=== PATIENT | male | born 1985 | race Caucasian/White ===

== ENCOUNTER 2016-05-04 22:07 | Emergency (ER) | payer SELFPAY ==
[2016-05-04 22:36] VITALS: BP 144/68; TEMP 99.7; O2SAT 99
[2016-05-04] MEDS ORDERED: ONDANSETRON INJ 4 MG/2 ML VIAL IV ONE (22:39)
[2016-05-04] MEDS ORDERED: SODIUM CHLORIDE 0.9% 1000ML 1,000 ML IVS ONE (22:39)
[2016-05-04] MEDS ORDERED: MORPHINE SULFATE INJ 10 MG/ML VIAL IV ONE (22:40)
--- NOTE | 2016-05-04 22:42 | ED.PDOC ---
History of Present Illness - General Chief Complaint: GI Problem Stated Complaint: vomiting over 24 hrs Time Seen by Provider: 05/04/16 22:38 Source: patient, RN notes reviewed, Vital Signs reviewed Exam Limitations: no limitations - History of Present Illness Initial Comments: Patient is a 31 y/o male who reports abdominal pain x 24 hours. He has had nausea and vomiting as well. Unable to keep anything down, including fluids. The pain is a sharp pain, worse in the RLQ, severe. Timing/Duration: 24 hours Severity: severe Improving Factors: nothing Worsening Factors: movement Associated Symptoms: loss of appetite, nausea/vomiting Allergies/Adverse Reactions: Allergies NO KNOWN ALLERGY Allergy (Verified 06/30/15 10:03) Home Medications: Ambulatory Orders Ondansetron [Zofran Odt] 4 mg PO Q4H PRN #10 tab 06/27/15 Pantoprazole Sodium [Protonix] 40 mg PO DAILY #30 tab 06/30/15 Promethazine Tab [Phenergan Tablet] 25 mg PO Q4HR PRN #10 tab 06/30/15 Ondansetron [Ondansetron Odt] 4 mg PO Q8H PRN #10 tab 05/05/16 Past Medical History (General) - Patient Medical History Hx Seizures: No Hx Stroke: No Hx Dementia: No Hx Asthma: No Hx of COPD: No Hx Cardiac Disorders: No Hx Congestive Heart Failure: No Hx Pacemaker: No Hx Hypertension: No Hx Thyroid Disease: No Hx Diabetes: No Hx Gastroesophageal Reflux: No Hx Renal Disease: No Hx Cancer: No Hx of HIV: No Hx Hepatitis C: No Hx MRSA: No - Vaccination History Hx Tetanus, Diphtheria Vaccination: No Hx Influenza Vaccination: No Hx Pneumococcal Vaccination: No - Social History Hx Tobacco Use: No Hx Chewing Tobacco Use: No Hx Alcohol Use: No Hx Substance Use: No Hx Substance Use Treatment: No Hx Depression: No Hx Physical Abuse: No Hx Emotional Abuse: No Hx Suspected Abuse: No - Triage Comment ED Triage Comment: Pt states he has been vomiting for over 24 hrs and abdominal pain in center of his stomach that radiates through his back. 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 Family Medical History - Family History Mother Family History: No Known Living Status: Still Living Progress - Results/Orders Results/Orders: 05/04/16 05/04/16 22:15 22:28 Temperature 99.7 F H Pulse Rate [ 57 L monitor] Respiratory 16 16 Rate Blood Pressure 144/68 [Left Arm] O2 Sat by Pulse 99 Oximetry 05/04/16 22:38 INFLUENZA A & B BY PCR Stat GROUP A STREP SCREEN,PCR Stat URINALYSIS Stat 05/04/16 23:11 Hold Metformin x 48Hrs [id number] Laboratory Results WBC 12.2 K/mm3 (4.8-10.8) H 05/04/16 22:41 RBC 5.67 M/mm3 (4.70-6.10) 05/04/16 22:41 Hgb 16.7 gm/dL (14.0-18.0) 05/04/16 22:41 Hct 49.3 % (42.0-52.0) 05/04/16 22:41 MCV 87.0 fl (80.0-94.0) 05/04/16 22:41 MCH 29.4 pg (27.0-31.0) 05/04/16 22:41 MCHC 33.8 g/dL (33.0-37.0) 05/04/16 22:41 RDW 13.3 % (11.5-14.5) 05/04/16 22:41 Plt Count 214 K/mm3 (130-400) 05/04/16 22:41 MPV 7.8 fl (7.40-10.4) 05/04/16 22:41 Absolute Neuts (auto) 10.30 K/uL (1.8-6.8) H 05/04/16 22:41 Absolute Lymphs (auto) 1.60 K/uL (1.0-3.4) 05/04/16 22:41 Absolute Monos (auto) 0.30 K/uL (0.2-0.8) 05/04/16 22:41 Absolute Eos (auto) 0.00 K/uL (0.0-0.4) 05/04/16 22:41 Absolute Basos (auto) 0.00 K/uL (0.0-0.1) 05/04/16 22:41 Neutrophils % 84.2 % (42.0-78.0) H 05/04/16 22:41 Lymphocytes % 12.9 % (20.0-50.0) L 05/04/16 22:41 Monocytes % 2.7 % (2.0-9.0) 05/04/16 22:41 Eosinophils % 0.0 % (1.0-5.0) L 05/04/16 22:41 Basophils % 0.2 % (0.0-2.0) 05/04/16 22:41 Sodium 142 mmol/L (135-145) 05/04/16 22:41 Potassium 3.8 mmol/L (3.6-5.0) 05/04/16 22:41 Chloride 103 mmol/L (101-111) 05/04/16 22:41 Carbon Dioxide 24 mmol/L (21-31) 05/04/16 22:41 Anion Gap 18.8 (12-18) H 05/04/16 22:41 BUN 22 mg/dL (7-18) H 05/04/16 22:41 Creatinine 1.04 mg/dL (0.6-1.3) 05/04/16 22:41 BUN/Creatinine Ratio 21.2 (10-20) H 05/04/16 22:41 Random Glucose 139 mg/dL (70-105) H 05/04/16 22:41 Serum Osmolality 288.7 mOsm/L (275-295) 05/04/16 22:41 Calcium 10.4 mg/dL (8.4-10.2) H 05/04/16 22:41 Total Bilirubin 1.1 mg/dL (0.2-1.0) H 05/04/16 22:41 AST 28 IU/L (10-42) 05/04/16 22:41 ALT 22 IU/L (10-60) 05/04/16 22:41 Alkaline Phosphatase 70 IU/L (42-121) 05/04/16 22:41 Serum Total Protein 8.9 gm/dL (6.4-8.2) H 05/04/16 22:41 Albumin 5.7 g/dl (3.2-5.5) H 05/04/16 22:41 Globulin 3.2 gm/dL (2.3-3.5) 05/04/16 22:41 Albumin/Globulin Ratio 1.8 (1.1-1.9) 05/04/16 22:41 - EKG/XRAY/CT CT: Abd/Pelvis - no acute process CT Ordered: Yes CT Interpretation Call Back: No - Report sent Departure - Departure Clinical Impression: Gastroenteritis Time of Disposition: 00:03 Disposition: Discharge to Home or Self Care Condition: Fair Departure Forms: ED Discharge - Pt. Copy, Patient Portal Self Enrollment Instructions: Viral Gastroenteritis, DI for Viral Gastroenteritis -- Adult, Gastroenteritis Diet Diet: bland diet Prescriptions: Ondansetron [Ondansetron Odt] 4 mg PO Q8H PRN #10 tab PRN Reason: Nausea/Vomiting Home Medications: Ambulatory Orders Ondansetron [Zofran Odt] 4 mg PO Q4H PRN #10 tab 06/27/15 Pantoprazole Sodium [Protonix] 40 mg PO DAILY #30 tab 06/30/15 Promethazine Tab [Phenergan Tablet] 25 mg PO Q4HR PRN #10 tab 06/30/15 Ondansetron [Ondansetron Odt] 4 mg PO Q8H PRN #10 tab 05/05/16 Additional Instructions: Follow up with PCP if symptoms persist or ED if symptoms worsen.
[2016-05-04] MEDS ORDERED: HYDROmorphone HCL INJ 2 MG/ML VIAL IM ONE (23:34)
[2016-05-04] MEDS ORDERED: HYDROmorphone HCL INJ 2 MG/ML VIAL IV ONE (23:41)
--- NOTE | 2016-05-04 23:49 | CT ---
PROCEDURE: Abdomen/Pelvis w/Contrast HISTORY: RLQ pain/nausea/vomiting Indication: Same as above Comparison: None . Technique: CT of the abdomen and pelvis was done with intravenous contrast. Images were obtained from the lung base to the level of the pubic symphysis in axial plane, followed by orthogonal sagittal and coronal reconstruction. Oral contrast was not given for the study. The patient was injected with contrast intravenously, without any documented immediate adverse reactions. FINDINGS: Images through the lung bases do not show any focal infiltrates or pleural effusions. The liver, gallbladder, pancreas, spleen and the bilateral adrenal glands appear unremarkable. The bilateral kidneys enhance with contrast in a normal fashion. The urinary bladder is unremarkable . The bilateral ureters and the bilateral periureteral soft tissues and fat planes are unremarkable. The small bowel appears unremarkable, without any evidence of small bowel obstruction or bowel wall thickening. There is no CT evidence of acute appendicitis, pericecal inflammatory change or ileocecal mesenteric adenitis. The ileocecal junction appears unremarkable. There is no CT evidence of acute colonic diverticulitis or colitis or large bowel obstruction. The splenic and portal veins are of normal caliber, without any filling defects. There is no pathological lymphadenopathy in the retroperitoneum or in the pelvic region. There is no evidence of free fluid or free air in the abdomen or the pelvic region. There is no clinically significant abdominal aortic aneurysm. There is no clinically significant inguinal or ventral hernia. The visualized lumbar spine is unremarkable. There is evidence of prior surgery in the visualized lower thoracic spine . The paravertebral soft tissues are unremarkable. The remainder of the pelvic structures are unremarkable. IMPRESSION: There are no acute findings on the current study. Location of Interpretation: [facility] Electronically signed by: Bryan Sanford MD 05/04/2016 11:48 PM [facility]
== END 2016-05-05 00:11 | disposition home or self-care (01) ==
LOC: ER 22:07
DX: K52.9 Noninfective gastroenteritis and colitis, unspecified (principal)
CPT/HCPCS: 74177; 80053; 85025; 87070; 87502; 87651; J1170; J2270; J2405; J7030

== ENCOUNTER 2016-05-05 06:43 | Emergency (ER) | payer SELFPAY ==
--- NOTE | 2016-05-05 07:07 | ED.PDOC ---
History of Present Illness - General Chief Complaint: Abdominal Pain Stated Complaint: epigastric pain Time Seen by Provider: 05/05/16 07:01 Source: patient, RN notes reviewed Additional Information: He stated that 2 days ago had nausea vomiting and diarrhea multiple times but last night started having epigastric pain with vomiting.No fever ,seen [facility] last night blood test ct abdomen did not show any acute findings. - History of Present Illness Timing/Duration: other - 2 days ago Improving Factors: nothing Worsening Factors: nothing Associated Symptoms: loss of appetite, nausea/vomiting Allergies/Adverse Reactions: Allergies NO KNOWN ALLERGY Allergy (Verified 06/30/15 10:03) Home Medications: Ambulatory Orders Ondansetron [Zofran Odt] 4 mg PO Q4H PRN #10 tab 06/27/15 Pantoprazole Sodium [Protonix] 40 mg PO DAILY #30 tab 06/30/15 Promethazine Tab [Phenergan Tablet] 25 mg PO Q4HR PRN #10 tab 06/30/15 Famotidine [Pepcid Tab] 20 mg PO BID #20 tab 05/05/16 Hyoscyamine Sulfate [Levsin] 0.125 mg PO TID #10 tab 05/05/16 Ondansetron [Ondansetron Odt] 4 mg PO Q8H PRN #10 tab 05/05/16 Promethazine W/Codeine Syr [Phenergan With Codeine Syrup] 10 ml PO TID PRN #120 ud 05/05/16 Review of Systems - Review of Systems Constitutional: States: no symptoms reported EENTM: States: no symptoms reported Respiratory: States: no symptoms reported Cardiology: States: no symptoms reported Gastrointestinal/Abdominal: States: see HPI Genitourinary: States: no symptoms reported Musculoskeletal: States: no symptoms reported Skin: States: no symptoms reported Neurological: States: no symptoms reported Endocrine: States: no symptoms reported Hematologic/Lymphatic: States: no symptoms reported Past Medical History (General) - Patient Medical History Hx Seizures: No Hx Stroke: No Hx Dementia: No Hx Asthma: No Hx of COPD: No Hx Cardiac Disorders: No Hx Congestive Heart Failure: No Hx Pacemaker: No Hx Hypertension: No Hx Thyroid Disease: No Hx Diabetes: No Hx Gastroesophageal Reflux: No Hx Renal Disease: No Hx Cancer: No Hx of HIV: No Hx Hepatitis C: No Hx MRSA: No Hx Other PMH: Yes - chronic back pain Surgical History: other - back surgery - Vaccination History Hx Tetanus, Diphtheria Vaccination: No Hx Influenza Vaccination: No Hx Pneumococcal Vaccination: No - Social History Hx Tobacco Use: No Hx Chewing Tobacco Use: No Hx Alcohol Use: No Hx Substance Use: No Hx Substance Use Treatment: No Hx Depression: No Hx Physical Abuse: No Hx Emotional Abuse: No Hx Suspected Abuse: No - Activities of Daily Living Patient Lives Alone: No - family Family Medical History - Family History Mother Family History: No Known Living Status: Still Living Hx Family;Other: DEPRESSSION-dad :suicide Physical Exam - Physical Exam General Appearance: Alert, No apparent distress Eye Exam: bilateral normal Ears, Nose, Throat: hearing grossly normal, normal ENT inspection Neck: non-tender, full range of motion Respiratory: chest non-tender, lungs clear, normal breath sounds Cardiovascular/Chest: normal peripheral pulses, regular rate, rhythm, no edema, no gallop Peripheral Pulses: radial,right: 2+, radial,left: 2+ Gastrointestinal/Abdominal: normal bowel sounds, soft, tenderness - epigastrium Back Exam: normal inspection, no CVA tenderness, no vertebral tenderness Extremity: normal range of motion, non-tender, normal inspection 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, no motor/sensory deficits, alert, normal mood/affect, oriented x 3 Skin Exam: normal color, warm/dry Lymphatic: no adenopathy Departure - Departure Clinical Impression: Epigastric abdominal pain, Diarrhea, Nausea and vomiting in adult patient Time of Disposition: 09:51 Disposition: Discharge to Home or Self Care Condition: Good Instructions: Diarrhea Diet: other - AVOID GREASY AND SPICY FOODS UNTIL BETTER Prescriptions: Hyoscyamine Sulfate [Levsin] 0.125 mg PO TID #10 tab Famotidine [Pepcid Tab] 20 mg PO BID #20 tab Promethazine W/Codeine Syr [Phenergan With Codeine Syrup] 10 ml PO TID PRN #120 ud PRN Reason: Abdominal Cramping Home Medications: Ambulatory Orders Ondansetron [Zofran Odt] 4 mg PO Q4H PRN #10 tab 06/27/15 Pantoprazole Sodium [Protonix] 40 mg PO DAILY #30 tab 06/30/15 Promethazine Tab [Phenergan Tablet] 25 mg PO Q4HR PRN #10 tab 06/30/15 Famotidine [Pepcid Tab] 20 mg PO BID #20 tab 05/05/16 Hyoscyamine Sulfate [Levsin] 0.125 mg PO TID #10 tab 05/05/16 Ondansetron [Ondansetron Odt] 4 mg PO Q8H PRN #10 tab 05/05/16 Promethazine W/Codeine Syr [Phenergan With Codeine Syrup] 10 ml PO TID PRN #120 ud 05/05/16 Additional Instructions: FOLLOW UP WITH PRIMARY MD NEXT WEEK
[2016-05-05] MEDS ORDERED: PANTOPRAZOLE SODIUM IV 40 MG VIAL IV ONE (07:20)
[2016-05-05] MEDS ORDERED: DICYCLOMINE HCL INJ 20 MG/2 ML AMP IM ONE (07:20)
[2016-05-05] MEDS ORDERED: KETOROLAC TROMETHAMINE INJ 30 MG/ML VIAL IV ONE (07:20)
[2016-05-05] MEDS ORDERED: LACTATED RINGERS 1,000 ML IVS ONE (07:20)
[2016-05-05] MEDS ORDERED: SODIUM CHLORIDE 0.9% 10 ML VIAL ONE (07:36)
[2016-05-05] MEDS ORDERED: LIDOCAINE VIS-MYLANTA 30 ML UD PO ONE (08:27)
[2016-05-05] MEDS ORDERED: SUCRALFATE 1 GM/10 ML 1 GM UD PO ONE (08:27)
[2016-05-05] MEDS ORDERED: PROMETHAZINE HCL INJ 25 MG/ML VIAL IM ONE (08:27)
[2016-05-05] MEDS ORDERED: MORPHINE SULFATE INJ 10 MG/ML VIAL IM ONE (08:27)
[2016-05-05] MEDS ORDERED: PROMETHAZINE HCL 25 MG TAB PO ONE (08:40)
[2016-05-05 09:24] VITALS: TEMP 98.6
[2016-05-05] MEDS ORDERED: MORPHINE SULFATE INJ 10 MG/ML VIAL IV ONE (09:48)
[2016-05-05] MEDS ORDERED: diphenhydrAMINE HCL 50 MG/ML VIAL IV ONE (09:49)
[2016-05-05 10:19] VITALS: BP 99/64; O2SAT 97
== END 2016-05-05 10:37 | disposition home or self-care (01) ==
LOC: ER 06:43
DX: R10.13 Epigastric pain (principal); R11.2 Nausea with vomiting, unspecified; R19.7 Diarrhea, unspecified; G89.29 Other chronic pain; M54.9 Dorsalgia, unspecified; Z79.899 Other long term (current) drug therapy
CPT/HCPCS: 80048; 83690; 85025; J0500; J1200; J1885; J2270; J7120; Q0169

== ENCOUNTER 2017-06-17 23:09 | Emergency (ER) | payer SELFPAY ==
[2017-06-17 23:26] VITALS: O2SAT 99
[2017-06-17] MEDS ORDERED: SODIUM CHLORIDE 0.9% 1000ML 1,000 ML IVS ONE (23:31)
[2017-06-17] MEDS ORDERED: PANTOPRAZOLE SODIUM IV 40 MG VIAL IV ONE (23:32)
[2017-06-17] MEDS ORDERED: SUCRALFATE 1 GM/10 ML 1 GM UD PO ONE (23:32)
[2017-06-17] MEDS ORDERED: PROMETHAZINE HCL INJ 25 MG in SODIUM CHLORIDE 0.9% 50ML 50 ML IVPB ONE (23:32)
[2017-06-17] MEDS ORDERED: PROMETHAZINE HCL INJ 25 MG/ML VIAL ONE (23:34)
[2017-06-17] MEDS ORDERED: SODIUM CHLORIDE 0.9% 50ML 50 ML ONE (23:34)
--- NOTE | 2017-06-18 00:16 | RAD ---
EXAM: TWO VIEW SINGLE and UPRIGHT ABDOMEN AND PA CHEST RADIOGRAPHS CLINICAL INDICATION: Abdominal pain nausea and vomiting for 3 days. COMPARISON: June 27, 2015. FINDINGS: Cardiac size and pulmonary vasculature are normal. Unchanged lower thoracic stabilization surgery. Lungs are clear. No bowel obstruction or free peritoneal gas. No biliary or portal gas. No abnormal abdominal or pelvic calcifications. IMPRESSION: No evidence of abdominal pain and nausea/vomiting etiology. Normal examination. Electronically signed by: Elliott Bridges MD 06/18/2017 12:14 AM CDT
[2017-06-18] MEDS ORDERED: MORPHINE SULFATE INJ 10 MG/ML VIAL IV ONE (00:39)
[2017-06-18] MEDS ORDERED: SODIUM CHLORIDE 0.9% 1000ML 1,000 ML IVS ONE (00:44)
[2017-06-18] MEDS ORDERED: diazePAM 5 MG TAB PO ONE (01:38)
[2017-06-18] MEDS ORDERED: KETOROLAC TROMETHAMINE INJ 30 MG/ML VIAL IV ONE (01:38)
[2017-06-18 02:14] VITALS: TEMP 100.2
[2017-06-18 03:01] VITALS: BP 121/74
[2017-06-18] MEDS ORDERED: ONDANSETRON ODT 8 MG TAB SL ONE (03:38)
[2017-06-18] MEDS ORDERED: HYDROcodone 5MG/APAP 325MG 1 EA TAB PO ONE (03:38)
[2017-06-18] MEDS ORDERED: CIPROFLOXACIN 500 MG TAB PO ONE (03:38)
--- NOTE | 2017-06-18 03:42 | ED.PDOC ---
History of Present Illness - General Chief Complaint: Abdominal Pain Stated Complaint: abdomen pain, back pain Time Seen by Provider: 06/17/17 23:12 Source: patient Exam Limitations: no limitations - History of Present Illness Initial Comments: the patient is a-old male presenting to emergency room secondary to nausea and vomiting and diarrhea for the last 3 days. He denies any fevers. No blood or bile in the vomitus. No blood in the stool. Abdominal pain is a little right sided then localized elsewhere. It is mildly colicky in nature. No urinary sym He does have someback pain which has been present already for the better part of 6-8 months. He is actually had back pain before that. Timing/Duration: 24 hours Severity: moderate Improving Factors: nothing Worsening Factors: nothing Associated Symptoms: loss of appetite, malaise, nausea/vomiting Allergies/Adverse Reactions: Allergies NO KNOWN ALLERGY Allergy (Verified 06/17/17 23:25) Home Medications: Ambulatory Orders Ondansetron [Zofran Odt] 4 mg PO Q4H PRN #10 tab 06/27/15 Pantoprazole Tablet [Protonix] 40 mg PO DAILY #30 tab 06/30/15 Promethazine Tab [Phenergan Tablet] 25 mg PO Q4HR PRN #10 tab 06/30/15 Famotidine [Pepcid Tab] 20 mg PO BID #20 tab 05/05/16 Hyoscyamine Sulfate [Levsin] 0.125 mg PO TID #10 tab 05/05/16 Ondansetron [Ondansetron Odt] 4 mg PO Q8H PRN #10 tab 05/05/16 Promethazine W/Codeine Syr [Phenergan With Codeine Syrup] 10 ml PO TID PRN #120 ud 05/05/16 Hewaoqunsphfy-Iuby-Tcvgkzyura [Fioricet] 1 ea PO Q8H PRN #21 tab 06/18/17 Ciprofloxacin [Cipro] 500 mg PO BID #14 tab 06/18/17 Famotidine 20 mg PO BID #60 tab 06/18/17 Ondansetron [Zofran Odt] 4 mg PO Q4H PRN #10 tab 06/18/17 Review of Systems - Review of Systems Constitutional: States: malaise EENTM: States: no symptoms reported Respiratory: States: no symptoms reported Cardiology: States: no symptoms reported Gastrointestinal/Abdominal: States: abdominal pain, diarrhea, nausea, vomiting Genitourinary: States: no symptoms reported Musculoskeletal: States: no symptoms reported Skin: States: no symptoms reported Neurological: States: no symptoms reported Endocrine: States: no symptoms reported Hematologic/Lymphatic: States: no symptoms reported All other Systems: No Change from Baseline Past Medical History (General) - Patient Medical History Hx Seizures: No Hx Stroke: No Hx Dementia: No Hx Asthma: No Hx of COPD: No Hx Cardiac Disorders: No Hx Congestive Heart Failure: No Hx Pacemaker: No Hx Hypertension: No Hx Thyroid Disease: No Hx Diabetes: No Hx Gastroesophageal Reflux: No Hx Renal Disease: No Hx Cancer: No Hx of HIV: No Hx Hepatitis C: No Hx MRSA: No - Vaccination History Hx Tetanus, Diphtheria Vaccination: Yes Hx Influenza Vaccination: Yes Hx Pneumococcal Vaccination: No - Social History Hx Tobacco Use: Yes Hx Chewing Tobacco Use: No Hx Alcohol Use: No Hx Substance Use: No Hx Substance Use Treatment: No Hx Depression: No Hx Physical Abuse: No Hx Emotional Abuse: No Hx Suspected Abuse: No Family Medical History - Family History Mother Family History: No Known Living Status: Still Living Hx Family;Other: DEPRESSSION-dad :suicide Physical Exam - Physical Exam General Appearance: Alert, No apparent distress Eye Exam: bilateral normal Ears, Nose, Throat: hearing grossly normal, normal ENT inspection, normal pharynx Neck: full range of motion, supple Respiratory: lungs clear, normal breath sounds, no respiratory distress, no accessory muscle use Cardiovascular/Chest: normal peripheral pulses, regular rate, rhythm, no edema Peripheral Pulses: radial,right: 2+, radial,left: 2+, dorsalis pedis,right: 2+, dorsalis pedis,left: 2+ Gastrointestinal/Abdominal: soft, other - mild bysided abdominal discomfort palpation. No definite rebound or peritoneal signs. 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 He does have some significant dehydration. He has received a couple of liters of IV fluid. He has received a dose of an anti-emetic. He has received a dose of pain medication as well. Symptomatically he has improved significantly. He is still having his chronic back pain however. He is receiving a dose of oral ciprofloxacin in case this is from a bacterial gastroenteritis or colitis. At this point in time his pain is not localized in the right lower quadrant but more the mid to upper right side. Laboratory work shows no evidence of any increase in liver function tests. Symptoms are consistent with an episode that the patient had a year ago in which he had a CT scan that did not show any acute pathology. At this point, I do not believe it is worthwhile to repeat exposing him to additional radiation. The patient will be written for Zofran for nausea and ciprofloxacin for the possibility of gastroenteritis colitis that is possibly from a bacterial source. additional causes such as lactose or gluten sensitivity or certainly possible, in which case if symptoms fail to improve with above measures, may need to be considered. Additionally he'll be written for Pepcid twice daily for the next week or 2. If his symptoms come back and worsen or do not subside, then repeat lab work and additional imaging either in the form of a CT scan or a right upper quadrant ultrasound preferably , if we have it available at the time, may be warranted. he has deferred waiting for a right upper quadrant ultrasound that would be available at 8 AM for now. White blood cell count was moderately elevated here today, however that may be significantly contributed to by dehydration. Otherwise, the patient should follow-up with his primary care doctor of his choosing in a couple of days for repeat evaluation of this issue as well as for longer-term follow-up of his persistent low back pain. ER warnings were repeated. 06/18/17 03:59 - Results/Orders Results/Orders: Laboratory Results - last 24 hr 06/17/17 06/17/17 06/18/17 23:44 23:44 03:05 WBC 19.4 H RBC 5.99 Hgb 18.3 H Hct 52.9 H MCV 88.3 MCH 30.5 MCHC 34.6 RDW 12.9 Plt Count 292 MPV 7.6 Absolute Neuts (auto) 17.50 H Absolute Lymphs (auto) 1.30 Absolute Monos (auto) 0.60 Absolute Eos (auto) 0.00 Absolute Basos (auto) 0.00 Neutrophils % 90.3 H Lymphocytes % 6.5 L Monocytes % 3.0 Eosinophils % 0.0 L Basophils % 0.2 Sodium 139 Potassium 3.7 Chloride 100 L Carbon Dioxide 23 Anion Gap 19.7 H BUN 21 H Creatinine 0.98 BUN/Creatinine Ratio 21.4 H Random Glucose 133 H Serum Osmolality 282.4 Calcium 10.4 H Magnesium 1.9 Total Bilirubin 1.4 H AST 29 ALT 30 Alkaline Phosphatase 73 Creatine Kinase 111 CK-MB (CK-2) 0.9 CK-MB (CK-2) % Not Reportable Troponin I 0.02 Serum Total Protein 8.9 H Albumin 5.8 H Globulin 3.1 Albumin/Globulin Ratio 1.9 Amylase 49 Lipase 17 L Urine Color Erica Urine Appearance Clear Urine pH 6.5 Ur Specific [place] 1.025 Urine Protein 100 H Urine Glucose (UA) Negative Urine Ketones >=160 Urine Blood Trace-intact H Urine Nitrite Negative Urine Bilirubin Moderate Urine Urobilinogen 0.2 Ur Leukocyte Esterase Negative Urine RBC 1-3 Urine WBC 1-3 Ur Epithelial Cells 0-1 Amorphous Sediment Trace Urine Bacteria Rare Urine Mucus Moderate acute abdominal series shows no evidence of any obvious pathology. Departure - Departure Clinical Impression: Nausea and vomiting Qualifiers: Vomiting type: unspecified Vomiting Intractability: non-intractable Qualified Code(s): R11.2 - Nausea with vomiting, unspecified Diarrhea Qualifiers: Diarrhea type: presumed infectious Qualified Code(s): A09 - Infectious gastroenteritis and colitis, unspecified Disposition: Discharge to Home or Self Care Condition: Fair Departure Forms: ED Discharge - Pt. Copy, Patient Portal Self Enrollment Diet: bland diet Prescriptions: Cyivmgykefaqf-Vyux-Ovpglztida [Fioricet] 1 ea PO Q8H PRN #21 tab PRN Reason: Pain Ciprofloxacin [Cipro] 500 mg PO BID #14 tab Famotidine 20 mg PO BID #60 tab Ondansetron [Zofran Odt] 4 mg PO Q4H PRN #10 tab PRN Reason: Vomiting Home Medications: Ambulatory Orders Ondansetron [Zofran Odt] 4 mg PO Q4H PRN #10 tab 06/27/15 Pantoprazole Tablet [Protonix] 40 mg PO DAILY #30 tab 06/30/15 Promethazine Tab [Phenergan Tablet] 25 mg PO Q4HR PRN #10 tab 06/30/15 Famotidine [Pepcid Tab] 20 mg PO BID #20 tab 05/05/16 Hyoscyamine Sulfate [Levsin] 0.125 mg PO TID #10 tab 05/05/16 Ondansetron [Ondansetron Odt] 4 mg PO Q8H PRN #10 tab 05/05/16 Promethazine W/Codeine Syr [Phenergan With Codeine Syrup] 10 ml PO TID PRN #120 ud 05/05/16 Iwfnzlmanhpls-Mjjd-Qsfeiafdfw [Fioricet] 1 ea PO Q8H PRN #21 tab 06/18/17 Ciprofloxacin [Cipro] 500 mg PO BID #14 tab 06/18/17 Famotidine 20 mg PO BID #60 tab 06/18/17 Ondansetron [Zofran Odt] 4 mg PO Q4H PRN #10 tab 06/18/17 Additional Instructions: the patient is a 32-year-old male presenting to emergency room secondary to a little over 2 days of nausea vomiting diarrhea. He does have some significant dehydration. He has received a couple of liters of IV fluid. He has received a dose of an anti-emetic. He has received a dose of pain medication as well. Symptomatically he has improved significantly. He is still having his chronic back pain however. He is receiving a dose of oral ciprofloxacin in case this is from a bacterial gastroenteritis or colitis. At this point in time his pain is not localized in the right lower quadrant but more the mid to upper right side. Laboratory work shows no evidence of any increase in liver function tests. Symptoms are consistent with an episode that the patient had a year ago in which he had a CT scan that did not show any acute pathology. At this point, I do not believe it is worthwhile to repeat exposing him to additional radiation. The patient will be written for Zofran for nausea and ciprofloxacin for the possibility of gastroenteritis colitis that is possibly from a bacterial source. additional causes such as lactose or gluten sensitivity or certainly possible, in which case if symptoms fail to improve with above measures, may need to be considered. Additionally he'll be written for Pepcid twice daily for the next week or 2. If his symptoms come back and worsen or do not subside, then repeat lab work and additional imaging either in the form of a CT scan or a right upper quadrant ultrasound preferably , if we have it available at the time, may be warranted. he has deferred waiting for a right upper quadrant ultrasound that would be available at 8 AM for now. White blood cell count was moderately elevated here today, however that may be significantly contributed to by dehydration. Otherwise, the patient should follow-up with his primary care doctor of his choosing in a couple of days for repeat evaluation of this issue as well as for longer-term follow-up of his persistent low back pain. ER warnings were repeated. a short prescription of Fioricet is being written for as needed use for pain control.
== END 2017-06-18 04:16 | disposition home or self-care (01) ==
LOC: ER 23:09
DX: A09 Infectious gastroenteritis and colitis, unspecified (principal); Z87.891 Personal history of nicotine dependence
CPT/HCPCS: 36415; 74019; 80053; 81001; 82150; 82550; 82553; 83690; 83735; 84484; 85025; A4216; J1885; J2270; J2550; J7030

== ENCOUNTER 2017-12-18 08:57 | Emergency (ER) | payer SELFPAY ==
[2017-12-18] MEDS ORDERED: ONDANSETRON INJ 4 MG/2 ML VIAL ONE (09:19)
[2017-12-18] MEDS ORDERED: ONDANSETRON INJ 4 MG/2 ML VIAL IV ONE (09:25)
[2017-12-18 09:26] VITALS: TEMP 96.5
[2017-12-18] MEDS ORDERED: SODIUM CHLORIDE 0.9% 1000ML 1,000 ML IVS ONE (09:36)
[2017-12-18] MEDS ORDERED: MORPHINE SULFATE INJ 10 MG/ML VIAL IV ONE (09:39)
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
[2017-12-18] MEDS ORDERED: methylPREDNISolone SODIUM SUC 125 MG/2 ML VIAL IV ONE (10:46)
[2017-12-18] MEDS ORDERED: KETOROLAC TROMETHAMINE INJ 30 MG/ML VIAL IV ONE (10:46)
--- NOTE | 2017-12-18 11:21 | US ---
EXAM DESCRIPTION: Abdomen,Limited CLINICAL HISTORY: N/V RUQ PAIN COMPARISON: CT abdomen May 04, 2006 TECHNIQUE: Right upper quadrant ultrasound FINDINGS: Pancreas: Visualized portions of the pancreas are unremarkable. Bowel gas obscures some areas. Aorta/inferior vena cava: No aortic aneurysm. Normal inferior vena cava. Liver: The liver is homogeneous in texture with normal echogenicity of the hepatic parenchyma. No focal liver lesion or intrahepatic bile duct dilatation. No liver surface irregularity. Normal appearance of the portal vein and hepatic veins. Gallbladder: Gallbladder appears normal with no intraluminal stones or wall thickening. Common bile duct: Ectatic common bile duct measures 8.6 mm but appears to taper proximally and distally which would argue against obstruction. Patient had a previous CT in April 2016 which showed prominence of the central intrahepatic bile ducts and prominent common bile duct measuring up to 9 mm. This is apparently a chronic finding. Right kidney: Renal length is 11.6 cm. Normal cortical echogenicity. Cortical thickness is normal. No hydronephrosis is seen. No renal mass or shadowing calculus. IMPRESSION: Ectatic common bile duct. Otherwise unremarkable sonographic evaluation of the upper abdomen. Electronically signed by: Reinier Aranda MD 12/18/2017 11:20 AM CDT
[2017-12-18] MEDS ORDERED: HYDROmorphone HCL INJ 2 MG/ML VIAL IV ONE ×2 (11:34→12:26)
[2017-12-18] MEDS ORDERED: PROMETHAZINE HCL INJ 12.5 MG in SODIUM CHLORIDE 0.9% 50ML 50 ML IVPB ONE (11:34)
[2017-12-18] MEDS ORDERED: PROMETHAZINE HCL INJ 25 MG/ML VIAL ONE (11:39)
[2017-12-18] MEDS ORDERED: SODIUM CHLORIDE 0.9% 50ML 50 ML ONE (11:40)
[2017-12-18 12:40] VITALS: BP 113/69; O2SAT 99
== END 2017-12-18 12:45 | disposition home or self-care (01) ==
LOC: ER 08:57
DX: R10.11 Right upper quadrant pain (principal); R11.2 Nausea with vomiting, unspecified; R82.2 Biliuria; D72.828 Other elevated white blood cell count; Z87.891 Personal history of nicotine dependence
CPT/HCPCS: 36415; 76775; 80053; 83690; 85025; A4216; J1170; J1885; J2270; J2405; J2550; J2930; J7030

== ENCOUNTER 2017-12-19 06:42 | Emergency (ER) | payer SELFPAY ==
[2017-12-19 06:56] VITALS: TEMP 99.2
[2017-12-19] MEDS ORDERED: SCOPOLAMINE PATCH 1.5MG 1 EA TD ONE (07:22)
[2017-12-19] MEDS ORDERED: diazePAM 5 MG TAB PO ONE (07:22)
[2017-12-19] MEDS ORDERED: PROCHLORPERAZINE MALEATE 10 MG TAB PO ONE (07:24)
--- NOTE | 2017-12-19 08:12 | ED.PDOC ---
History of Present Illness - General Chief Complaint: GI Problem Stated Complaint: nausea, vomiting Time Seen by Provider: 12/19/17 07:00 Source: patient Exam Limitations: no limitations - History of Present Illness Initial Comments: The patient is a 32-year-old male presenting to the emergency room secondary to recurrent nausea and vomiting with associated flare in his chronic back pain. The patient was here yesterday and had a fairly extensive workup including a right upper quadrant ultrasound. Laboratory work was reassuring as was the ultrasound. He is starting then set up with gastroenterology follow- up. He will need endoscopy. The patient showed back up early this morning because the pain medications that he gotten yesterday had worn off and he was starting to have some nausea again. No vomiting this time. He reports he does not have any pain or nausea medications at home. No new symptoms. No fever.this is a recurrent picture with this patient. Over the last 3 years he has had several ultrasounds and at least for CT scans of the abdomen here. He has been recommended on multiple occasions to follow-up with gastroenterology which he has never done.the patient received IV fluids yesterday as well as multiple doses of pain medications and nausea medications. He also received a dose of Solu-Medrol. Timing/Duration: unsure Severity: severe Improving Factors: nothing Worsening Factors: nothing Associated Symptoms: nausea/vomiting Allergies/Adverse Reactions: Allergies NO KNOWN ALLERGY Allergy (Verified 06/17/17 23:25) Home Medications: Ambulatory Orders Ondansetron [Zofran Odt] 4 mg PO Q4H PRN #10 tab 06/27/15 Pantoprazole Tablet [Protonix] 40 mg PO DAILY #30 tab 06/30/15 Promethazine Tab [Phenergan Tablet] 25 mg PO Q4HR PRN #10 tab 06/30/15 Famotidine [Pepcid Tab] 20 mg PO BID #20 tab 05/05/16 Hyoscyamine Sulfate [Levsin] 0.125 mg PO TID #10 tab 05/05/16 Ondansetron [Ondansetron Odt] 4 mg PO Q8H PRN #10 tab 05/05/16 Promethazine W/Codeine Syr [Phenergan With Codeine Syrup] 10 ml PO TID PRN #120 ud 05/05/16 Iekztvquqydbb-Rqin-Xfceayliki [Fioricet] 1 ea PO Q8H PRN #21 tab 06/18/17 Ciprofloxacin [Cipro] 500 mg PO BID #14 tab 06/18/17 Famotidine 20 mg PO BID #60 tab 06/18/17 Ondansetron [Zofran Odt] 4 mg PO Q4H PRN #10 tab 06/18/17 Cyclobenzaprine HCl [Flexeril] 10 mg PO TID PRN #20 tab 12/19/17 Ondansetron [Zofran Odt] 4 mg PO Q4H PRN #10 tab 12/19/17 Sucralfate Tab [Carafate Tab] 1 gm PO QID #120 tab 12/19/17 Review of Systems - Review of Systems Constitutional: States: malaise EENTM: States: no symptoms reported Respiratory: States: no symptoms reported Cardiology: States: no symptoms reported Gastrointestinal/Abdominal: States: nausea, vomiting Genitourinary: States: no symptoms reported Musculoskeletal: States: back pain Skin: States: no symptoms reported Neurological: States: anxiety All other Systems: No Change from Baseline Past Medical History (General) - Patient Medical History Hx Seizures: No Hx Stroke: No Hx Dementia: No Hx Asthma: No Hx of COPD: No Hx Cardiac Disorders: No Hx Congestive Heart Failure: No Hx Pacemaker: No Hx Hypertension: No Hx Thyroid Disease: No Hx Diabetes: No Hx Gastroesophageal Reflux: No Hx Renal Disease: No Hx Cancer: No Hx of HIV: No Hx Hepatitis C: No Hx MRSA: No Surgical History: other - Vaccination History Hx Tetanus, Diphtheria Vaccination: No Hx Influenza Vaccination: No Hx Pneumococcal Vaccination: No - Social History Hx Tobacco Use: Yes Hx Chewing Tobacco Use: No Hx Alcohol Use: No Hx Substance Use: No Hx Substance Use Treatment: No Hx Depression: No Hx Physical Abuse: No Hx Emotional Abuse: No Hx Suspected Abuse: No - Female History Patient : No Family Medical History - Family History Mother Family History: No Known Living Status: Still Living Hx Family;Other: DEPRESSSION-dad :suicide Physical Exam - Physical Exam General Appearance: Alert, No apparent distress Eye Exam: bilateral normal Ears, Nose, Throat: hearing grossly normal, normal ENT inspection, normal pharynx Neck: full range of motion, supple Respiratory: lungs clear, normal breath sounds, no respiratory distress, no accessory muscle use Cardiovascular/Chest: normal peripheral pulses, regular rate, rhythm, no edema Peripheral Pulses: radial,right: 2+, radial,left: 2+ Gastrointestinal/Abdominal: soft, other - mild diffuse discomfort a little worse in the right upper quadrant than elsewhere. No rebound or peritoneal signs. Rectal Exam: deferred Back Exam: other - mild diffuse mid back discomfort palpation. Extremity: non-tender, no calf tenderness, normal capillary refill Neurologic: burial needs salesperson II-XII nml as tested, alert, oriented x 3 Skin Exam: normal color Comments: Vital Signs - 24 hr 12/19/17 06:55 Temperature 99.2 F Pulse Rate [ 70 right brachial] Respiratory 20 Rate Blood Pressure 136/88 [right brachial ] O2 Sat by Pulse 98 Oximetry Progress - Progress Progress: 12/19/17 08:16 the patient is a 32-year-old male presenting with recurrent episodes of nausea and vomiting that trigger his chronic back pain. He is to keep his appointment with gastroenterology this coming week. He already received IV fluids yesterday. He received a dose of oral steroids here today primarily for his back. He has also been treated here today with a muscle relaxer and a stomach medication and has had a scopolamine patch placed for the nausea and vomiting. If he has any confusion or significant dizziness then he has to remove the patch. Otherwise it stays in place for up to 72 hours. He'll be written for Carafate for his stomach as well as some Zofran for nausea and vomiting. He'll be written for Flexeril for a muscle relaxer to help reduce his chronic back pain. He can take Tylenol additionally up to 3000 mg a day in total for up to one week only. He needs to keep himself well-hydrated. For now anti-inflammatories will be avoided until he is evaluated by gastroenterology. He can follow up with his primary care doctor around Sunday before the weekend to make sure he is doing okay. Source of the recurrent nausea and vomiting is still in question. He has received at least 4 CT scans over the last 3 years and at least one ultrasound along with frequent lab work to try and find the source without any significant success. It is imperative that he keep his follow-up with gastroenterology. ER warnings were given. the patient is resting comfortably and indeed had to be woke up for his discharge. 12/19/17 08:54 Departure - Departure Clinical Impression: Cyclical vomiting with nausea Qualifiers: Vomiting Intractability: non-intractable Qualified Code(s): G43.A0 - Cyclical vomiting, not intractable Chronic back pain Qualifiers: Back pain location: thoracic back pain Back pain laterality: midline Qualified Code(s): M54.6 - Pain in thoracic spine Disposition: Discharge to Home or Self Care Condition: Fair Departure Forms: ED Discharge - Pt. Copy, Patient Portal Self Enrollment Instructions: DI for Gastritis Diet: bland diet Activity: increase activity as tolerated Prescriptions: Cyclobenzaprine HCl [Flexeril] 10 mg PO TID PRN #20 tab PRN Reason: Muscle Spasms Ondansetron [Zofran Odt] 4 mg PO Q4H PRN #10 tab PRN Reason: Vomiting Sucralfate Tab [Carafate Tab] 1 gm PO QID #120 tab Home Medications: Ambulatory Orders Ondansetron [Zofran Odt] 4 mg PO Q4H PRN #10 tab 06/27/15 Pantoprazole Tablet [Protonix] 40 mg PO DAILY #30 tab 06/30/15 Promethazine Tab [Phenergan Tablet] 25 mg PO Q4HR PRN #10 tab 06/30/15 Famotidine [Pepcid Tab] 20 mg PO BID #20 tab 05/05/16 Hyoscyamine Sulfate [Levsin] 0.125 mg PO TID #10 tab 05/05/16 Ondansetron [Ondansetron Odt] 4 mg PO Q8H PRN #10 tab 05/05/16 Promethazine W/Codeine Syr [Phenergan With Codeine Syrup] 10 ml PO TID PRN #120 ud 05/05/16 Asdukmedsjctr-Hazc-Zfqzdktwyk [Fioricet] 1 ea PO Q8H PRN #21 tab 06/18/17 Ciprofloxacin [Cipro] 500 mg PO BID #14 tab 06/18/17 Famotidine 20 mg PO BID #60 tab 06/18/17 Ondansetron [Zofran Odt] 4 mg PO Q4H PRN #10 tab 06/18/17 Cyclobenzaprine HCl [Flexeril] 10 mg PO TID PRN #20 tab 12/19/17 Ondansetron [Zofran Odt] 4 mg PO Q4H PRN #10 tab 12/19/17 Sucralfate Tab [Carafate Tab] 1 gm PO QID #120 tab 12/19/17 Additional Instructions: the patient is a 32-year-old male presenting with recurrent episodes of nausea and vomiting that trigger his chronic back pain. He is to keep his appointment with gastroenterology this coming week. He already received IV fluids yesterday. He received a dose of oral steroids here today primarily for his back. He has also been treated here today with a muscle relaxer and a stomach medication and has had a scopolamine patch placed for the nausea and vomiting. If he has any confusion or significant dizziness then he has to remove the patch. Otherwise it stays in place for up to 72 hours. He'll be written for Carafate for his stomach as well as some Zofran for nausea and vomiting. He'll be written for Flexeril for a muscle relaxer to help reduce his chronic back pain. He can take Tylenol additionally up to 3000 mg a day in total for up to one week only. He needs to keep himself well-hydrated. For now anti-inflammatories will be avoided until he is evaluated by gastroenterology. He can follow up with his primary care doctor around Sunday before the weekend to make sure he is doing okay. Source of the recurrent nausea and vomiting is still in question. He has received at least 4 CT scans over the last 3 years and at least one ultrasound along with frequent lab work to try and find the source without any significant success. It is imperative that he keep his follow-up with gastroenterology. ER warnings were given.
[2017-12-19] MEDS ORDERED: DEXAMETHASONE 4 MG TAB PO ONE (08:15)
[2017-12-19] MEDS ORDERED: SUCRALFATE 1 GM/10 ML 1 GM UD PO ONE (08:15)
[2017-12-19 08:44] VITALS: O2SAT 99
[2017-12-19] MEDS ORDERED: KETOROLAC TROMETHAMINE INJ 30 MG/ML VIAL IM ONE (09:11)
[2017-12-19 09:26] VITALS: BP 101/62
== END 2017-12-19 09:26 | disposition home or self-care (01) ==
LOC: ER 06:42
DX: G43.A0 Cyclical vomiting, in migraine, not intractable (principal); M54.6 Pain in thoracic spine; G89.29 Other chronic pain; Z79.899 Other long term (current) drug therapy; Z87.891 Personal history of nicotine dependence
CPT/HCPCS: J1885; J8540; Q0164

== ENCOUNTER 2018-04-08 17:14 | Emergency (ER) | payer SELFPAY ==
[2018-04-08] MEDS ORDERED: KETOROLAC TROMETHAMINE INJ 30 MG/ML VIAL IM ONE (17:34)
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
[2018-04-08] MEDS ORDERED: MORPHINE SULFATE INJ 10 MG/ML VIAL IM ONE (18:15)
[2018-04-08] MEDS ORDERED: ORPHENADRINE CITRATE 30 MG/ML AMP IM ONE (18:16)
--- NOTE | 2018-04-08 18:20 | RAD ---
EXAM: Shoulder,Left 2 or More Views CLINICAL INDICATION: Left shoulder pain COMPARISON: There is no previous study for comparison. FINDINGS:Three views of the left shoulder demonstrate no fracture or dislocation. The AC joint is unremarkable. The visualized portion of the lung apex is clear. IMPRESSION: Negative left shoulder radiographs. Electronically signed by: Narciso Mei MD 04/08/2018 6:18 PM [facility]
--- NOTE | 2018-04-08 18:23 | RAD ---
EXAM: Lumbar Spine 3 Views (accession [id number]), Thoracic Spine,AP Lateral (accession [id number]) CLINICAL INDICATION: Mid back pain, low back pain, trauma COMPARISON: 05/04/2013 FINDINGS: Three views of the lumbar spine and three views of the thoracic spine again demonstrate surgical changes from posterior fusion procedure at the T8-T12 levels with stable chronic moderate compression fracture of T10. There is no new or acute fracture or compression deformity in the spine. The osseous structures are otherwise intact and unremarkable. IMPRESSION: No evidence of acute traumatic injury. Electronically signed by: Narciso Mei MD 04/08/2018 6:21 PM [facility]
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
[2018-04-08] MEDS ORDERED: ONDANSETRON ODT 8 MG TAB ONE (18:32)
[2018-04-08] MEDS ORDERED: ONDANSETRON ODT 8 MG TAB SL ONE (18:37)
[2018-04-08] MEDS ORDERED: HYDROcodone 10MG/APAP 325MG 1 EA TAB PO ONE (19:28)
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
--- NOTE | 2018-04-08 20:06 | CT ---
EXAM: Head CLINICAL INDICATION: 32-year-old male with nausea and vomiting after trauma. COMPARISON: 04/01/2011. TECHNIQUE: CT brain without contrast. This exam was performed according to our departmental dose optimization program which includes use of automated exposure control, adjustment of the mA and/or kV according to patient size and/or use of iterative reconstruction technique. FINDINGS: Examination findings are limited through the skull base and posterior fossa secondary to streak motion artifact. The ventricles, sulci, and cisterns are within normal limits. The medina-white matter differentiation is preserved. There is no mass effect, midline shift, intra- or extra-axial fluid collection/acute hemorrhage. The osseous structures are unremarkable. The paranasal sinuses and mastoid air cells are clear. IMPRESSION: No acute intracranial abnormalities. Electronically signed by: Dora Martins MD 04/08/2018 8:04 PM [facility]
[2018-04-08 20:40] VITALS: BP 136/70; O2SAT 97
[2018-04-08 20:51] VITALS: TEMP 98.9
== END 2018-04-08 20:53 | disposition home or self-care (01) ==
LOC: ER 17:14
DX: S22.070D Wedge compression fracture of T9-T10 vertebra, subsequent encounter for fracture with routine healing (principal); G89.29 Other chronic pain; M54.5 Low back pain; M25.512 Pain in left shoulder; W20.8XXA Other cause of strike by thrown, projected or falling object, initial encounter; Y99.0 Civilian activity done for income or pay; Y92.69 Other specified industrial and construction area as the place of occurrence of the external cause; Z98.1 Arthrodesis status; Z87.891 Personal history of nicotine dependence
CPT/HCPCS: 70450; 72070; 72100; 72125; 73030; J1885; J2270; J2360